=== PATIENT | male | born 1980 | race Caucasian/White ===

== ENCOUNTER 2016-07-02 12:04 | Emergency (ER) | payer SELFPAY ==
--- NOTE | 2016-07-02 12:43 | EDM.PDOC ---
ED HPI GENERAL MEDICAL PROBLEM - General Chief Complaint: General Stated Complaint: CHEST PAINS, HEART RACING Time Seen by Provider: 07/02/16 12:25 Source of Information: Reports: Patient - History of Present Illness INITIAL COMMENTS - FREE TEXT/NARRATIVE: patient present to ER with concerns of fatigue after having a 15 min chest pain episode yesterday and an episode where his heart was racing last night. the chest pain episode yesterday started when he was at work, stated he had a sharp pain to the middle of his chest which made him feel like he was going to pass out. 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 his concern today is the significant fatigue follow those episodes. says he has also been under a lot of stress and going through a divorce. Onset Date: 07/01/16 Location: Reports: chest Quality: Reports: Sharp Severity: moderate Associated Symptoms: Reports: chest pain, malaise, shortness of breath, other ( dizziness) - Related Data Allergies Allergy/AdvReac Type Severity Reaction Status Date / Time No Known Allergies Allergy Verified 07/02/16 12:22 Home Meds: Home Meds . [No Known Home Meds] 07/02/16 [History] ED ROS GENERAL - Review of Systems Review Of Systems: ROS reveals no pertinent complaints other than HPI. ED EXAM, GENERAL - Physical Exam Exam: See Below Exam Limited By: No limitations General Appearance: alert, WD/WN, no apparent distress Neck: normal inspection, supple Respiratory/Chest: no respiratory distress, lungs clear, normal breath sounds, no accessory muscle use, chest non-tender Cardiovascular: normal peripheral pulses, regular rate, rhythm, no edema, no gallop, no JVD, no murmur, no rub GI/Abdominal: normal bowel sounds, soft, non tender Extremities: normal inspection, no pedal edema, normal capillary refill Skin Exam: Warm, Dry, Intact Course - Vital Signs Last Recorded V/S: Last Vital Signs Temp 37.4 C 07/02/16 12:05 Pulse 100 07/02/16 12:05 Resp 16 07/02/16 12:05 BP 141/83 H 07/02/16 12:05 Pulse Ox 95 07/02/16 12:05 - Orders/Labs/Meds Labs: Laboratory Tests 07/02/16 07/02/16 Range/Units 12:35 12:35 WBC 11.8 H (4.0-10.0) x10^3/uL RBC 4.89 (4.5-6.0) x10^6/uL Hgb 14.8 (14.0-18.0) g/dL Hct 42.3 (40.0-52.0) % MCV 86.5 (78.0-93.0) fL MCH 30.3 (26.0-32.0) pg MCHC 35.0 (32.0-36.0) g/dL RDW Coeff of Patel 12.4 (10.0-15.0) % Plt Count 332 (130-400) x10^3/uL Neut % (Auto) 60.6 (50.0-80.0) % Lymph % (Auto) 30.1 (25.0-50.0) % [place] % (Auto) 8.3 (2.0-11.0) % Eos % (Auto) 0.8 (0.0-4.0) % Baso % (Auto) 0.2 (0.2-1.2) % Sodium 141 (136-145) mmol/L Potassium 3.8 (3.5-5.1) mmol/L Chloride 104 (98-107) mmol/L Carbon Dioxide 28 (21-32) mmol/L BUN 12 (7-18) mg/dL Creatinine 1.1 (0.70-1.30) mg/dL Est Cr Clr Drug Dosing 110.02 mL/min Estimated GFR (MDRD) > 60 Glucose 90 (74-106) mg/dL Calcium 9.0 (8.5-10.1) mg/dL Corrected Calcium 9.24 (8.5-10.1) mg/dL Total Bilirubin 0.6 (0.2-1.0) mg/dL AST 17 (15-37) U/L ALT 32 (16-63) U/L Alkaline Phosphatase 76 (46-116) U/L Creatine Kinase 118 (39-308) U/L Troponin I < 0.017 (<=0.056) ng/mL Total Protein 7.6 (6.4-8.2) g/dL Albumin 3.7 (3.4-5.0) g/dL Globulin 3.9 Albumin/Globulin Ratio 0.95 Departure - Departure Time of Disposition: 13:30 Disposition: Home, Self-Care 01 Clinical Impression: Nonspecific chest pain, Viral syndrome Referrals: Joseline Martino DO [Primary Care Provider] - Forms: ED Department Discharge Care Plan Goals: rest and fluids see primary provider if not better in 3 days. return to ER if chest pain returns or heart races. - Problem List & Annotations (1) Nonspecific chest pain SNOMED Code(s): 66319674 Code(s): R07.9 - CHEST PAIN, UNSPECIFIED Status: Acute Priority: Medium Current Visit: Yes (2) Viral syndrome SNOMED Code(s): 53569451, 916089201 Code(s): B34.9 - VIRAL INFECTION, UNSPECIFIED Status: Acute Priority: Medium Current Visit: Yes - Assessment/Plan Plan: rest and fluids see primary provider if not better in 3 days. return to ER if chest pain returns or heart races.
[2016-07-02 12:48] VITALS: BP 141/83
[2016-07-02 13:07] LABS: CHLORIDE,CL 104 mmol/L (98-107); SODIUM,NA 141 mmol/L (136-145)
== END 2016-07-02 13:34 | disposition home or self-care (01) ==
LOC: VM.ED 12:04
DX: R07.9 Chest pain, unspecified (principal); B34.9 Viral infection, unspecified
CPT/HCPCS: 36415; 80053; 82550; 84484; 85025; 93005; 99283-GF; 99285

== ENCOUNTER 2018-07-24 10:03 | Emergency (ER) | payer BC ==
[2018-07-24] MEDS ORDERED: Sodium Chloride 0.9% 10 ML Syringe FLUSH PRN (10:11)
[2018-07-24] MEDS ORDERED: HYDROmorphone 1 MG/ML Syringe IVPUSH ONE (10:12)
[2018-07-24] MEDS ORDERED: Sodium Chloride 0.9% 1,000 ML IV ONE (10:12)
[2018-07-24] MEDS ORDERED: Ketorolac 15 MG/ML SDV IVPUSH ONE (10:13)
[2018-07-24] MEDS ORDERED: Ondansetron 4 MG/2 ML SDV IVPUSH ONE (10:13)
[2018-07-24 10:16] VITALS: BP 156/86
[2018-07-24 10:49] LABS: ANION GAP 16.1 mmol/L (10-20); CHLORIDE,CL 104 mmol/L (98-107); SODIUM,NA 143 mmol/L (136-145)
--- NOTE | 2018-07-24 11:21 | EDM.PDOC ---
ED HPI GENERAL MEDICAL PROBLEM - General Chief Complaint: Flank Pain Stated Complaint: kidney stones Time Seen by Provider: 07/24/18 10:03 Source of Information: Reports: Patient History Limitations: Reports: No Limitations - History of Present Illness INITIAL COMMENTS - FREE TEXT/NARRATIVE: Pt. presents to ER with complaints of R sided flank pain and abominal pain with radiation into the groin. Pt. states that the discomfort started rapidly this AM. He states that the discomfort is sharp. He states that he has a history of kidney stones in the past in 2013. He has also noticed small amount of blood in his urine recently as well. Pt. denies any fever or chills. No chest pain or shortness of breath. He is very nauseated. He initially had an appointment in the clinic but he was transferred to ED for evaluation and treatment. Onset: Today Onset Date: 07/24/18 Duration: Constant Location: Reports: Abdomen, Other (R flank pain) Quality: Reports: Sharp Severity: Severe Associated Symptoms: Reports: Diaphoresis, Nausea/Vomiting. Denies: Fever/ Chills Right Flank Pain Score (Numeric/FACES): 9 - Related Data Allergies Allergy/AdvReac Type Severity Reaction Status Date / Time No Known Allergies Allergy Verified 07/29/18 18:36 Home Meds: Home Meds Tamsulosin HCl [Flomax] 0.4 mg PO DAILY 7 Days #7 cap.er.24h 07/29/18 [Rx] Past Medical History - Past Health History Medical/Surgical History: Denies Medical/Surgical History Genitourinary History: Reports: Renal Calculus Other Genitourinary History: kidney stone 2013 Social & Family History - Tobacco Use Smoking Status *Q: Unknown Ever Smoked ED ROS GENERAL - Review of Systems Review Of Systems: See Below Constitutional: Reports: No Symptoms HEENT: Reports: No Symptoms Respiratory: Reports: No Symptoms Cardiovascular: Reports: No Symptoms Endocrine: Reports: No Symptoms GI/Abdominal: Reports: Abdominal Pain : Reports: Flank Pain, Hematuria, Pain Musculoskeletal: Reports: No Symptoms Skin: Reports: No Symptoms Neurological: Reports: No Symptoms Psychiatric: Reports: No Symptoms Hematologic/Lymphatic: Reports: No Symptoms Immunologic: Reports: No Symptoms ED EXAM, GENERAL - Physical Exam Exam: See Below Exam Limited By: No Limitations General Appearance: Alert, WD/WN, No Apparent Distress Neck: Normal Inspection, Supple, Non-Tender, Full Range of Motion Respiratory/Chest: No Respiratory Distress, Lungs Clear, Normal Breath Sounds, No Accessory Muscle Use, Chest Non-Tender Cardiovascular: Normal Peripheral Pulses, Regular Rate, Rhythm, No Edema, No Gallop, No JVD, No Murmur, No Rub GI/Abdominal: Normal Bowel Sounds, Soft, Non-Tender, No Organomegaly, No Distention, No Abnormal Bruit (Male) Exam: Deferred Rectal (Males) Exam: Deferred Back Exam: Normal Inspection, Full Range of Motion, CVA Tenderness (R) Extremities: Normal Inspection, Normal Range of Motion, Non-Tender, Normal Capillary Refill, No Pedal Edema Neurological: Alert, Oriented, CN II-XII Intact, Normal Cognition, Normal Gait, Normal Reflexes, No Motor/Sensory Deficits Course - Vital Signs Last Recorded V/S: Last Vital Signs Temp 36.3 C 07/24/18 10:03 Pulse 82 07/24/18 10:03 Resp 18 07/24/18 10:03 BP 156/86 H 07/24/18 10:03 Pulse Ox 100 07/24/18 10:03 - Orders/Labs/Meds Labs: Laboratory Tests 07/24/18 07/24/18 07/24/18 Range/Units 10:19 10:19 10:19 WBC 12.8 H (4.0-10.0) x10^3/uL RBC 4.65 (4.5-6.0) x10^6/uL Hgb 14.1 (14.0-18.0) g/dL Hct 41.2 (40.0-52.0) % MCV 88.6 (78.0-93.0) fL MCH 30.3 (26.0-32.0) pg MCHC 34.2 (32.0-36.0) g/dL RDW Coeff of Patel 12.9 (10.0-15.0) % Plt Count 376 (130-400) x10^3/uL Neut % (Auto) 53.0 (50.0-80.0) % Lymph % (Auto) 39.0 (25.0-50.0) % [place] % (Auto) 6.6 (2.0-11.0) % Eos % (Auto) 1.2 (0.0-4.0) % Baso % (Auto) 0.2 (0.2-1.2) % PT 9.4 L (10.0-12.8) SEC INR 0.8 L (2.0-3.5) Sodium 143 (136-145) mmol/L Potassium 4.1 (3.5-5.1) mmol/L Chloride 104 (98-107) mmol/L Carbon Dioxide 27 (21-32) mmol/L Anion Gap 16.1 (10-20) mmol/L BUN 16 (7-18) mg/dL Creatinine 1.1 (0.70-1.30) mg/dL Est Cr Clr Drug Dosing TNP Estimated GFR (MDRD) > 60 Glucose 107 H (74-106) mg/dL Calcium 9.6 (8.5-10.1) mg/dL Corrected Calcium 9.92 (8.5-10.1) mg/dL Phosphorus 2.5 L (2.6-4.7) mg/dL Magnesium 2.0 (1.8-2.4) mg/dL Total Bilirubin 0.3 (0.2-1.0) mg/dL AST 23 (15-37) U/L ALT 56 (16-63) U/L Alkaline Phosphatase 88 (46-116) U/L C-Reactive Protein 0.9 (<=0.9) mg/dL Total Protein 7.5 (6.4-8.2) g/dL Albumin 3.6 (3.4-5.0) g/dL Globulin 3.9 Albumin/Globulin Ratio 0.92 Urine Color (YELLOW) Urine Appearance (CLEAR) Urine pH (5.0-8.0) Ur Specific [place] Urine Protein (NEGATIVE) mg/dL Urine Glucose (UA) (NEGATIVE) mg/dL Urine Ketones (NEGATIVE) mg/dL Urine Occult Blood (NEGATIVE) Urine Nitrite (NEGATIVE) Urine Bilirubin (NEGATIVE) Urine Urobilinogen (0.2) EU/dL Ur Leukocyte Esterase (NEGATIVE) Urine RBC (NOT SEEN) /HPF Urine WBC (NOT SEEN) /HPF Ur Squamous Epith Cells (NEGATIVE) /HPF Urine Bacteria (NEGATIVE) /HPF Urine Mucus (NEGATIVE) /LPF 07/24/18 Range/Units 11:05 WBC (4.0-10.0) x10^3/uL RBC (4.5-6.0) x10^6/uL Hgb (14.0-18.0) g/dL Hct (40.0-52.0) % MCV (78.0-93.0) fL MCH (26.0-32.0) pg MCHC (32.0-36.0) g/dL RDW Coeff of Patel (10.0-15.0) % Plt Count (130-400) x10^3/uL Neut % (Auto) (50.0-80.0) % Lymph % (Auto) (25.0-50.0) % [place] % (Auto) (2.0-11.0) % Eos % (Auto) (0.0-4.0) % Baso % (Auto) (0.2-1.2) % PT (10.0-12.8) SEC INR (2.0-3.5) Sodium (136-145) mmol/L Potassium (3.5-5.1) mmol/L Chloride (98-107) mmol/L Carbon Dioxide (21-32) mmol/L Anion Gap (10-20) mmol/L BUN (7-18) mg/dL Creatinine (0.70-1.30) mg/dL Est Cr Clr Drug Dosing Estimated GFR (MDRD) Glucose (74-106) mg/dL Calcium (8.5-10.1) mg/dL Corrected Calcium (8.5-10.1) mg/dL Phosphorus (2.6-4.7) mg/dL Magnesium (1.8-2.4) mg/dL Total Bilirubin (0.2-1.0) mg/dL AST (15-37) U/L ALT (16-63) U/L Alkaline Phosphatase (46-116) U/L C-Reactive Protein (<=0.9) mg/dL Total Protein (6.4-8.2) g/dL Albumin (3.4-5.0) g/dL Globulin Albumin/Globulin Ratio Urine Color Dark yellow H (YELLOW) Urine Appearance Slightly cloudy H (CLEAR) Urine pH 7.0 (5.0-8.0) Ur Specific [place] 1.015 Urine Protein Negative (NEGATIVE) mg/dL Urine Glucose (UA) Negative (NEGATIVE) mg/dL Urine Ketones Negative (NEGATIVE) mg/dL Urine Occult Blood Small H (NEGATIVE) Urine Nitrite Negative (NEGATIVE) Urine Bilirubin Negative (NEGATIVE) Urine Urobilinogen 0.2 (0.2) EU/dL Ur Leukocyte Esterase Negative (NEGATIVE) Urine RBC 5-10 H (NOT SEEN) /HPF Urine WBC Not seen (NOT SEEN) /HPF Ur Squamous Epith Cells Not seen (NEGATIVE) /HPF Urine Bacteria Rare (NEGATIVE) /HPF Urine Mucus Rare H (NEGATIVE) /LPF Meds: Medications Discontinued Medications Generic Name Dose Route Start Last Admin Trade Name Freq PRN Reason Stop Dose Admin Hydromorphone HCl 1 mg 07/24/18 10:12 07/24/18 11:40 Dilaudid IVPUSH 07/24/18 10:13 Not Given ONETIME ONE Sodium Chloride 1,000 mls @ 1,000 mls/hr 07/24/18 10:12 07/24/18 10:27 Normal Saline IV 07/24/18 11:11 1,000 mls/hr .BOLUS ONE Administration Ketorolac Tromethamine 15 mg 07/24/18 10:13 07/24/18 10:31 Toradol IVPUSH 07/24/18 10:14 15 mg ONETIME ONE Administration Ondansetron HCl 4 mg 07/24/18 10:13 07/24/18 10:28 Zofran IVPUSH 07/24/18 10:14 4 mg ONETIME ONE Administration Sodium Chloride 10 ml 07/24/18 10:11 Saline Flush FLUSH ASDIRECTED PRN Keep Vein Open - Re-Assessments/Exams Free Text/Narrative Re-Assessment/Exam: 07/24/18 11:26 Pt. reports that the pain rapidly resolved shortly after admission to ED. He was not given any IV dilaudid. Departure - Departure Time of Disposition: 11:50 Disposition: Home, Self-Care 01 Clinical Impression: Kidney stones - Discharge Information Instructions: Kidney Stones, [id number], Flank Pain, Adult, [id number] Referrals: PCP,None [Primary Care Provider] - Forms: ED Department Discharge Additional Instructions: Flomax 0.4mg 1 tablet daily for 5 days [place] 10/325mg 1 every 4-6 hours for pain Ibuprofen 200mg 3 tabs every 6-8 hours for pain Return to ER if you have recurrence of the pain that is not helped by the oral medications. Follow-up in clinic in 10-14 days for recheck. - Problem List Review Problem List Initiated/Reviewed/Updated: Yes - Assessment/Plan Plan: Flomax 0.4mg 1 tablet daily for 5 days [place] 10/325mg 1 every 4-6 hours for pain Ibuprofen 200mg 3 tabs every 6-8 hours for pain Return to ER if you have recurrence of the pain that is not helped by the oral medications. Follow-up in clinic in 10-14 days for recheck.
== END 2018-07-24 11:45 | disposition home or self-care (01) ==
LOC: VM.ED 10:03
DX: N20.0 Calculus of kidney (principal); Z79.899 Other long term (current) drug therapy
CPT/HCPCS: 36415; 80053; 81001; 83735; 84100; 85025; 85610; 86140; 96361; 96374; 96375; 99284-25; J1885; J2405; J7030

== ENCOUNTER 2018-07-29 14:05 | Emergency (ER) | payer BC ==
[2018-07-29] MEDS ORDERED: HYDROmorphone 1 MG/ML Syringe IVPUSH ONE (14:30)
[2018-07-29] MEDS ORDERED: Sodium Chloride 0.9% 2,000 ML IV SCH (14:30)
[2018-07-29] MEDS ORDERED: Ondansetron 4 MG/2 ML SDV IVPUSH ONE (14:30)
[2018-07-29] MEDS ORDERED: Sodium Chloride 0.9% 10 ML Syringe FLUSH PRN (14:31)
--- NOTE | 2018-07-29 14:41 | EDM.PDOC ---
ED HPI GENERAL MEDICAL PROBLEM - General Chief Complaint: Genitourinary Problem Stated Complaint: KIDNEY STONE Time Seen by Provider: 07/29/18 14:08 Source of Information: Reports: Patient, Old Records, RN, RN Notes Reviewed History Limitations: Reports: No Limitations - History of Present Illness INITIAL COMMENTS - FREE TEXT/NARRATIVE: Pt. presents to ER with complaints of R sided flank pain and abominal pain with radiation into the groin. Pt. states that the discomfort started rapidly this AM. He states that the discomfort is sharp. He states that he has a history of kidney stones in the past in 2013. He has also noticed small amount of blood in his urine recently as well. Pt. denies any fever or chills. No chest pain or shortness of breath. He is very nauseated. He initially had an appointment in the clinic but he was transferred to ED for evaluation and treatment. Patient was seen in this ER 07/24/2018. He had labs completed but no CT. Patient states he was told by the provider at that time "I'm sure its a kidney stone." Patient was started on Flomax and vidocin and sent home. Pain restarted today. He took Advil and Tylenol around 12:30 which "only dulled the pain." He is now requesting further workup. Onset Date: 07/24/18 - Related Data Allergies Allergy/AdvReac Type Severity Reaction Status Date / Time No Known Allergies Allergy Verified 07/24/18 10:21 Home Meds: Home Meds Tamsulosin HCl [Flomax] 0.4 mg PO DAILY 7 Days #7 cap.er.24h 07/29/18 [Rx] Past Medical History - Past Health History Medical/Surgical History: Denies Medical/Surgical History Genitourinary History: Reports: Renal Calculus Other Genitourinary History: kidney stone 2014 ED ROS GENERAL - Review of Systems Review Of Systems: See Below Constitutional: Denies: Fever, Chills Respiratory: Denies: Shortness of Breath, Cough Cardiovascular: Denies: Chest Pain, Palpitations GI/Abdominal: Reports: Abdominal Pain, Nausea. Denies: Vomiting : Reports: Hematuria Skin: Reports: No Symptoms Neurological: Reports: No Symptoms ED EXAM, RENAL/ - Physical Exam Exam: See Below Exam Limited By: No Limitations General Appearance: Alert, No Apparent Distress Respiratory/Chest: No Respiratory Distress, Lungs Clear, Normal Breath Sounds Cardiovascular: Normal Peripheral Pulses, Regular Rate, Rhythm GI/Abdominal: Normal Bowel Sounds, Soft, Non-Tender Back Exam: CVA Tenderness (R) Neurological: Alert, Oriented Skin Exam: Warm, Dry, Intact, Normal Color Course - Orders/Labs/Meds Orders: Active Orders 24 hr Category Date Time Status Sodium Chloride 0.9% [Normal Saline] 2,000 ml Med 07/29/18 14:30 Active IV ASDIRECTED Sodium Chloride 0.9% [Saline Flush] Med 07/29/18 14:31 Active 10 ml FLUSH ASDIRECTED PRN Peripheral IV Insertion Adult [OM.PC] Routine Oth 07/29/18 14:31 Ordered Medication Orders Sodium Chloride (Normal Saline) 2,000 mls @ 999 mls/hr IV ASDIRECTED JUS Last Admin: 07/29/18 14:51 Dose: 999 mls/hr Sodium Chloride (Saline Flush) 10 ml FLUSH ASDIRECTED PRN PRN Reason: Keep Vein Open Labs: Laboratory Tests 07/29/18 07/29/18 07/29/18 Range/Units 14:28 14:35 14:40 WBC 10.0 (4.0-10.0) x10^3/uL RBC 4.78 (4.5-6.0) x10^6/uL Hgb 14.4 (14.0-18.0) g/dL Hct 42.1 (40.0-52.0) % MCV 88.1 (78.0-93.0) fL MCH 30.1 (26.0-32.0) pg MCHC 34.2 (32.0-36.0) g/dL RDW Coeff of Patel 12.8 (10.0-15.0) % Plt Count 350 (130-400) x10^3/uL Neut % (Auto) 63.8 (50.0-80.0) % Lymph % (Auto) 27.9 (25.0-50.0) % [place] % (Auto) 6.4 (2.0-11.0) % Eos % (Auto) 1.7 (0.0-4.0) % Baso % (Auto) 0.2 (0.2-1.2) % Sodium 142 (136-145) mmol/L Potassium 3.4 L (3.5-5.1) mmol/L Chloride 103 (98-107) mmol/L Carbon Dioxide 30 (21-32) mmol/L Anion Gap 12.4 (10-20) mmol/L BUN 17 (7-18) mg/dL Creatinine 1.1 (0.70-1.30) mg/dL Est Cr Clr Drug Dosing TNP Estimated GFR (MDRD) > 60 Glucose 100 (74-106) mg/dL Calcium 9.7 (8.5-10.1) mg/dL Urine Color Dark yellow H (YELLOW) Urine Appearance Slightly cloudy H (CLEAR) Urine pH 6.5 (5.0-8.0) Ur Specific [place] 1.015 Urine Protein Negative (NEGATIVE) mg/dL Urine Glucose (UA) Negative (NEGATIVE) mg/dL Urine Ketones Negative (NEGATIVE) mg/dL Urine Occult Blood Trace-lysed H (NEGATIVE) Urine Nitrite Negative (NEGATIVE) Urine Bilirubin Negative (NEGATIVE) Urine Urobilinogen 0.2 (0.2) EU/dL Ur Leukocyte Esterase Negative (NEGATIVE) Urine RBC 0-5 (NOT SEEN) /HPF Urine WBC 0-5 (NOT SEEN) /HPF Ur Squamous Epith Cells Rare (NEGATIVE) /HPF Urine Bacteria Rare (NEGATIVE) /HPF Urine Mucus Rare H (NEGATIVE) /LPF Meds: Medications Generic Name Dose Route Start Last Admin Trade Name Freq PRN Reason Stop Dose Admin Sodium Chloride 2,000 mls @ 999 mls/hr 07/29/18 14:30 07/29/18 14:51 Normal Saline IV 999 mls/hr ASDIRECTED JUS Administration Sodium Chloride 10 ml 07/29/18 14:31 Saline Flush FLUSH ASDIRECTED PRN Keep Vein Open Discontinued Medications Generic Name Dose Route Start Last Admin Trade Name Freq PRN Reason Stop Dose Admin Hydromorphone HCl 2 mg 07/29/18 14:30 07/29/18 14:51 Dilaudid IVPUSH 07/29/18 14:31 2 mg ONETIME ONE Administration Ondansetron HCl 4 mg 07/29/18 14:30 07/29/18 14:51 Zofran IVPUSH 07/29/18 14:31 4 mg ONETIME ONE Administration Tamsulosin HCl 0.4 mg 07/29/18 16:23 Flomax PO 07/29/18 16:24 ONETIME ONE - Radiology Interpretation Free Text/Narrative:: CT Abd/Pelvis: 5 mm radiopague right UPJ calculus with mild right-sided hydro See scanned report in EMR for details CT Results Date: 07/29/18 CT Results Time: 16:05 Departure - Departure Time of Disposition: 16:22 Disposition: Home, Self-Care 01 Condition: Good Clinical Impression: Kidney stone on right side - Discharge Information *PRESCRIPTION DRUG MONITORING PROGRAM REVIEWED*: Not Applicable *COPY OF PRESCRIPTION DRUG MONITORING REPORT IN PATIENT ZANE: Not Applicable Prescriptions: Tamsulosin HCl [Flomax] 0.4 mg PO DAILY 7 Days #7 cap.er.24h Instructions: Low-Purine Eating Plan, Kidney Stones Referrals: Joseline Martion DO [Primary Care Provider] - Forms: ED Department Discharge Additional Instructions: 1. Stay well hydrated and rest 2. Take pain medication sparingly 3. Continue taking Flomax for the full coarse 4. You are scheduled to see Urology on August 19 at [facility] [place]. García - Problem List Review Problem List Initiated/Reviewed/Updated: Yes - My Orders Last 24 Hours: My Active Orders 07/29/18 14:30 Sodium Chloride 0.9% [Normal Saline] 2,000 ml IV ASDIRECTED 07/29/18 14:31 Sodium Chloride 0.9% [Saline Flush] 10 ml FLUSH ASDIRECTED PRN Peripheral IV Insertion Adult [OM.PC] Routine - Assessment/Plan Last 24 Hours: My Active Orders 07/29/18 14:30 Sodium Chloride 0.9% [Normal Saline] 2,000 ml IV ASDIRECTED 07/29/18 14:31 Sodium Chloride 0.9% [Saline Flush] 10 ml FLUSH ASDIRECTED PRN Peripheral IV Insertion Adult [OM.PC] Routine Assessment:: Kidney Stones Plan: Labs and CT scan discussed with patient. Continue with Flomax. Use pain medication sparingly as no refill will be given. Patient will be set up with Urology due to size of stone and hydronephrosis.
[2018-07-29 15:01] LABS: CHLORIDE,CL 103 mmol/L (98-107); SODIUM,NA 142 mmol/L (136-145)
[2018-07-29 15:02] LABS: ANION GAP 12.4 mmol/L (10-20)
--- NOTE | 2018-07-29 16:08 | CT ---
[id number] CT/CT Abdomen Pelvis WO IV Exam: CT Abdomen Pelvis WO IV Clinical Data: ABDOMINAL PAIN. VOMITING. HEMATURIA. COMPARISON: CORRELATION IS MADE WITH THE EXAM OF JULY 30, 2013. FINDINGS: A 5 mm radiopaque calculus is seen on image 49, series 2. This is at the right UPJ. This results in mild right-sided hydronephrosis. Urology consultation would be helpful. The pelvis shows no mass or adenopathy. There is no evidence of appendicitis. There are inherent limitations of the exam without IV contrast. The gallbladder is not distended. There appears to be tiny calculus in the left kidney on image 20, series 2. The liver and spleen, adrenals, aorta, pancreas otherwise are unremarkable.. IMPRESSION: 5 MM RADIOPAQUE RIGHT UPJ CALCULUS WITH MILD RIGHT-SIDED HYDRONEPHROSIS. Maldonado Shelton MD 07/29/18 [id number] Thank you for allowing us to participate in the care of your patient.
[2018-07-29] MEDS ORDERED: Tamsulosin 0.4 MG Cap.ER PO ONE (16:23)
[2018-07-29 18:41] VITALS: BP 121/80
== END 2018-07-29 16:40 | disposition home or self-care (01) ==
LOC: VM.ED 14:05
DX: N13.2 Hydronephrosis with renal and ureteral calculous obstruction (principal); Z79.899 Other long term (current) drug therapy
CPT/HCPCS: 36415; 74176; 80048; 81001; 85025; 96361; 96374; 96375; 99284-25; A9270-GY; J1170; J2405; J7030

== ENCOUNTER 2020-05-24 12:35 | Emergency (ER) | payer BC ==
[2020-05-24] MEDS ORDERED: Ketorolac 30 MG/ML SDV IVPUSH ONE (13:01)
[2020-05-24] MEDS ORDERED: Ondansetron 4 MG/2 ML SDV IVPUSH ONE (13:01)
--- NOTE | 2020-05-24 13:07 | EDM.PDOC ---
ED HPI GENERAL MEDICAL PROBLEM - General Chief Complaint: Flank Pain Stated Complaint: FLANK PAIN Time Seen by Provider: 05/24/20 12:45 Source of Information: Reports: Patient History Limitations: Reports: No Limitations - History of Present Illness INITIAL COMMENTS - FREE TEXT/NARRATIVE: Patient states approximate about 2 hours ago he had a sharp sudden pain in his left flank area he rated about a 9 out of 10 states he felt like it was a kidney stone that he has had in the past last one was about a year and a half ago. He states pain started radiating down his left side and into his groin and now it feels just about over his hip. States pain is now down to a 7 out of 10. States he has had multiple stones in the past and usually about 1 every year or year and a half. He states he has passed multiple's on his own and had to have stents placed as well the last 2 has had to have stents that were placed by Dr. Roberson. He denies any renal issues beside stones he has no other medical problems. He has no nausea or vomiting at this time no fever or dysuria or frequency or hesitancy Duration: Hour(s):, Waxing/Waning Location: Reports: Back Severity: Severe Improves with: Reports: None Worsens with: Reports: None Associated Symptoms: Reports: No Other Symptoms Right Flank Pain Score (Numeric/FACES): 9 - Related Data Allergies Allergy/AdvReac Type Severity Reaction Status Date / Time No Known Allergies Allergy Verified 05/24/20 13:38 Home Meds: Home Meds Venlafaxine HCl [Venlafaxine ER] 37.5 mg PO DAILY 05/24/20 [History] Past Medical History - Past Health History Medical/Surgical History: Denies Medical/Surgical History Genitourinary History: Reports: Renal Calculus Other Genitourinary History: kidney stone 2014 ED ROS GENERAL - Review of Systems Review Of Systems: See Below Constitutional: Reports: No Symptoms HEENT: Reports: No Symptoms Respiratory: Reports: No Symptoms Cardiovascular: Reports: No Symptoms Endocrine: Reports: No Symptoms GI/Abdominal: Denies: Abdominal Pain, Nausea, Vomiting : Reports: Flank Pain. Denies: No Symptoms Musculoskeletal: Reports: No Symptoms Skin: Reports: No Symptoms Neurological: Reports: No Symptoms Psychiatric: Reports: No Symptoms Hematologic/Lymphatic: Reports: No Symptoms Immunologic: Reports: No Symptoms ED EXAM, RENAL/ - Physical Exam Exam: See Below Exam Limited By: No Limitations General Appearance: Alert, WD/WN, Other (Patient appears to be in mild discomfort slightly writhing on the bed) Eye Exam: Bilateral Eye: EOMI, Normal Inspection Throat/Mouth: Normal Inspection, Normal Lips, Normal Teeth, Normal Gums, Normal Oropharynx, Normal Voice, No Airway Compromise Neck: Normal Inspection, Supple, Non-Tender, Full Range of Motion Respiratory/Chest: No Respiratory Distress, Lungs Clear, Normal Breath Sounds, No Accessory Muscle Use, Chest Non-Tender Cardiovascular: Normal Peripheral Pulses, Regular Rate, Rhythm, No Edema, No Gallop, No JVD, No Murmur GI/Abdominal: Normal Bowel Sounds, Soft, Non-Tender, No Organomegaly, No Distention, No Abnormal Bruit Back Exam: Normal Inspection, Full Range of Motion. No: CVA Tenderness (L), CVA Tenderness (R) Extremities: Normal Inspection, Normal Range of Motion, Non-Tender Neurological: Alert, Oriented, CN II-XII Intact, Normal Cognition Psychiatric: Normal Affect, Normal Mood Skin Exam: Warm, Dry, Intact, Normal Color, No Rash Course - Vital Signs Text/Narrative:: CBC BMP urinalysis Toradol 30 mg IV with Zofran 1 L normal saline bolus Patient recheck states he feels 100% better all lab work within normal limits BUN and creatinine within normal limits urinalysis moderate amount of blood Patient okay with treatment disposition follow-up with urology/PCP Called and spoke with the nurse for the urologist at [facility] states they will have the patient worked in the clinic by Sunday or sooner if need be and he presents to the ER there. Patient will be sent home with Lortab 10 mg 1 p.o. every 4 to 6 hours as needed number of 11 Zofran 4 mg 1 p.o. every 4 to 6 hours as needed #30 Phenergan 25 mg 1 p.o. every 4 to 6 hours as needed #30 Patient gives verbal understanding to return to the emergency room if anything changes or gets worse Last Recorded V/S: Last Vital Signs Temp 35 C L 05/24/20 12:35 Pulse 79 05/24/20 12:35 Resp 16 05/24/20 12:35 BP 155/93 H 02/08/21 12:35 Pulse Ox 100 05/24/20 12:35 - Orders/Labs/Meds Labs: Laboratory Tests 05/24/20 05/24/20 05/24/20 Range/Units 13:10 13:42 14:05 WBC 11.8 H (4.0-10.0) x10^3/uL RBC 5.26 (4.5-6.0) x10^6/uL Hgb 15.2 (14.0-18.0) g/dL Hct 44.4 (40.0-52.0) % MCV 84.4 D (78.0-93.0) fL MCH 28.9 (26.0-32.0) pg MCHC 34.2 (32.0-36.0) g/dL RDW Coeff of Patel 12.8 (10.0-15.0) % Plt Count 323 (130-400) x10^3/uL Neut % (Auto) 45.9 L (50.0-80.0) % Lymph % (Auto) 46.5 (25.0-50.0) % [place] % (Auto) 5.8 (2.0-11.0) % Eos % (Auto) 1.5 (0.0-4.0) % Baso % (Auto) 0.3 (0.2-1.2) % Sodium 140 (136-145) mmol/L Potassium 3.4 L (3.5-5.1) mmol/L Chloride 102 (98-107) mmol/L Carbon Dioxide 23 (21-32) mmol/L Anion Gap 18.4 H (5-15) mmol/L BUN 11 (7-18) mg/dL Creatinine 1.3 (0.70-1.30) mg/dL Est Cr Clr Drug Dosing 89.58 mL/min Estimated GFR (MDRD) > 60 Glucose 117 H (74-106) mg/dL Calcium 8.9 (8.5-10.1) mg/dL Urine Color Yellow (YELLOW) Urine Appearance Clear (CLEAR) Urine pH 5.5 (5.0-8.0) Ur Specific [place] 1.025 Urine Protein Trace H (NEGATIVE) mg/dL Urine Glucose (UA) Negative (NEGATIVE) mg/dL Urine Ketones 15 H (NEGATIVE) mg/dL Urine Occult Blood Moderate H (NEGATIVE) Urine Nitrite Negative (NEGATIVE) Urine Bilirubin Negative (NEGATIVE) Urine Urobilinogen 0.2 (0.2) EU/dL Ur Leukocyte Esterase Negative (NEGATIVE) Meds: Medications Discontinued Medications Generic Name Dose Route Start Last Admin Trade Name Mary PRN Reason Stop Dose Admin Hydromorphone HCl 0.5 mg 05/24/20 13:21 05/24/20 13:26 Dilaudid IV 05/24/20 13:22 0.5 mg ONETIME ONE Administration Sodium Chloride 1,000 mls @ 999 mls/hr 05/24/20 13:22 05/24/20 13:26 Normal Saline IV 05/24/20 14:22 999 mls/hr ONETIME ONE Administration Ketorolac Tromethamine 30 mg 05/24/20 13:01 05/24/20 13:20 Toradol IVPUSH 05/24/20 13:02 30 mg ONETIME ONE Administration Ondansetron HCl 4 mg 05/24/20 13:01 05/24/20 13:20 Zofran IVPUSH 05/24/20 13:02 4 mg ONETIME ONE Administration Departure - Departure Time of Disposition: 14:50 Disposition: Home, Self-Care 01 Condition: Good Clinical Impression: Renal colic on left side, Hematuria - Discharge Information *PRESCRIPTION DRUG MONITORING PROGRAM REVIEWED*: No *COPY OF PRESCRIPTION DRUG MONITORING REPORT IN PATIENT ZANE: No Forms: ED Department Discharge Sepsis Event Note (ED) - Focused Exam Vital Signs: Vital Signs Temp Pulse Resp BP Pulse Ox 05/24/20 12:35 35 C L 79 16 155/93 H 100 - Problem List & Annotations (1) Hematuria SNOMED Code(s): 60082467 Code(s): R31.9 - HEMATURIA, UNSPECIFIED Status: Acute Current Visit: Yes (2) Renal colic on left side SNOMED Code(s): 0532414 Code(s): N23 - UNSPECIFIED RENAL COLIC Status: Acute Current Visit: Yes
[2020-05-24] MEDS ORDERED: HYDROmorphone 0.5 MG/0.5 ML Syringe IV ONE (13:21)
[2020-05-24] MEDS ORDERED: Sodium Chloride 0.9% 1,000 ML IV ONE (13:22)
[2020-05-24 13:34] VITALS: BP 155/93; PULSE 79
[2020-05-24 14:00] LABS: ANION GAP 18.4 mmol/L (5-15); CHLORIDE,CL 102 mmol/L (98-107); SODIUM,NA 140 mmol/L (136-145)
== END 2020-05-24 15:45 | disposition home or self-care (01) ==
LOC: VM.ED 12:35
DX: N23 Unspecified renal colic (principal); R31.9 Hematuria, unspecified; Z87.442 Personal history of urinary calculi
CPT/HCPCS: 36415; 80048; 81003; 85025; 96374; 96375; 99284; 99284-25; J1170; J1885; J2405; J7030